=== PATIENT | female | born 1980 ===

== ENCOUNTER 2021-08-10 11:00 | Emergency (ER) | payer OTHER ==
[2021-08-10] MEDS ORDERED: Ondansetron 4 MG/2 ML SDV IVPUSH ONE ×2 (11:40→14:44)
[2021-08-10] MEDS ORDERED: Sodium Chloride 0.9% 1,000 ML IV SCH ×2 (11:45→13:00)
[2021-08-10] MEDS ORDERED: traMADol 50 MG Tab PO ONE (13:25)
[2021-08-10] MEDS ORDERED: Pantoprazole 40 MG Vial IVPUSH ONE (14:09)
== END 2021-08-10 15:06 | disposition home or self-care (01) ==
LOC: JP.ED 11:00
DX: F15.23 Other stimulant dependence with withdrawal (principal); K31.89 Other diseases of stomach and duodenum; E86.0 Dehydration; Z88.0 Allergy status to penicillin; Z72.0 Tobacco use
CPT/HCPCS: 36415; 80053; 80305-QW; 81001; 82150; 83690; 85025; 87086; 87088; 87186; 96374; 96375; 96376; 99282; 99284-25; A9270-GY; C9113; J2405; J7030

== ENCOUNTER 2021-09-22 21:30 | Emergency (ER) | payer OTHER ==
[2021-09-22] MEDS ORDERED: Naloxone 0.4 MG/ML SDV IVPUSH PRN (21:41)
== END 2021-09-23 00:14 ==
LOC: JP.ED 21:30
DX: R45.82 Worries (principal); Z88.0 Allergy status to penicillin; Z87.891 Personal history of nicotine dependence
CPT/HCPCS: 80305-QW; 99283